=== PATIENT | female | born 1970 | race American Indian/Alaskan Native ===

== ENCOUNTER 2017-12-13 04:38 | Emergency (ER) | payer SELFPAY ==
[2017-12-13] MEDS ORDERED: CATAPRES ONE (04:54)
[2017-12-13] MEDS ORDERED: CATAPRES PO ONE (04:57)
--- NOTE | 2017-12-13 05:47 | Emergency Department Report ---
ED ENT HPI - General Chief complaint: Dental/Oral Stated complaint: JAW PAIN Time Seen by Provider: 12/13/17 05:43 Source: patient Mode of arrival: Ambulatory Limitations: No Limitations - History of Present Illness Initial comments: 47-year-old -Trist[place] female with past medical history of hypertension comes in today complaining of left-sided jaw pain has been going on for about 2 weeks. Patient reports that she had a toothache one week ago and now having jaw pain and swelling. Patient also comes in for being out of her blood pressure medicine for a week. Patient reports that she has appointment with her primary care provider on Thursday but he would not refill her medication until she makes an office visit. Patient reports she has not been to the dentist in a long time. Patient denies any chest pain no fever no chills no nausea no vomiting no headache or shortness of breathing. Her last office visit to her primary care was about 2 months ago. She reports that she has a follow-up appointment this week on Thursday. Patient has an allergy to MARINE inhibitor. Her current blood pressure medicine is metoprolol 50 twice a day amlodipine 10 mg daily. MD complaint: tooth pain -: week(s) (2) Location: tooth # (15) Consistency: constant Worsens with: eating Associated Symptoms: gum swelling, toothache - Related Data Previous Rx's Medication Instructions Recorded Last Taken Type Acetaminophen/Codeine [Tylenol 1 tab PO Q4HR PRN #20 tablet 12/13/17 Unknown Rx /Codeine # 3 tab] Clindamycin [Clindamycin CAP] 300 mg PO Q8H 10 Days #30 cap 12/13/17 Unknown Rx Metoprolol [Lopressor TAB] 50 mg PO BID 30 Days #30 tablet 12/13/17 Unknown Rx amLODIPine [Norvasc] 10 mg PO DAILY #30 tablet 12/13/17 Unknown Rx cloNIDine [Catapres] 0.1 mg PO DAILY PRN #30 tablet 12/13/17 Unknown Rx Allergies Allergy/AdvReac Type Severity Reaction Status Date / Time lisinopril Allergy Swelling Verified 04/06/16 18:02 MARINE Inhibitors AdvReac Unknown Verified 04/18/15 23:09 ED Dental HPI - General Chief complaint: Dental/Oral Stated complaint: JAW PAIN Time Seen by Provider: 12/13/17 05:43 Source: patient Mode of arrival: Ambulatory Limitations: No Limitations - Related Data Previous Rx's Medication Instructions Recorded Last Taken Type Acetaminophen/Codeine [Tylenol 1 tab PO Q4HR PRN #20 tablet 12/13/17 Unknown Rx /Codeine # 3 tab] Clindamycin [Clindamycin CAP] 300 mg PO Q8H 10 Days #30 cap 12/13/17 Unknown Rx Metoprolol [Lopressor TAB] 50 mg PO BID 30 Days #30 tablet 12/13/17 Unknown Rx amLODIPine [Norvasc] 10 mg PO DAILY #30 tablet 12/13/17 Unknown Rx cloNIDine [Catapres] 0.1 mg PO DAILY PRN #30 tablet 12/13/17 Unknown Rx Allergies Allergy/AdvReac Type Severity Reaction Status Date / Time lisinopril Allergy Swelling Verified 04/06/16 18:02 MARINE Inhibitors AdvReac Unknown Verified 04/18/15 23:09 ED Review of Systems ROS: Stated complaint: JAW PAIN Other details as noted in HPI Constitutional: denies: chills, fever Eyes: denies: eye pain, eye discharge, vision change ENT: dental pain. denies: ear pain, throat pain Respiratory: denies: cough, shortness of breath, wheezing Cardiovascular: denies: chest pain, palpitations Endocrine: no symptoms reported Gastrointestinal: denies: abdominal pain, nausea, diarrhea Genitourinary: denies: urgency, dysuria, discharge Musculoskeletal: denies: back pain, joint swelling, arthralgia Skin: denies: rash, lesions Neurological: denies: headache, weakness, paresthesias Psychiatric: denies: anxiety, depression Hematological/Lymphatic: denies: easy bleeding, easy bruising ED Past Medical Hx - Past Medical History Previous Medical History?: Yes Hx Hypertension: Yes Hx Congestive Heart Failure: No Hx Diabetes: No Hx Asthma: No Hx COPD: No - Surgical History Past Surgical History?: Yes Additional Surgical History: Ectopic - Social History Smoking Status: Never Smoker Substance Use Type: None - Medications Home Medications: Home Medications Medication Instructions Recorded Confirmed Last Taken Type Acetaminophen/Codeine [Tylenol 1 tab PO Q4HR PRN #20 tablet 12/13/17 Unknown Rx /Codeine # 3 tab] Clindamycin [Clindamycin CAP] 300 mg PO Q8H 10 Days #30 cap 12/13/17 Unknown Rx Metoprolol [Lopressor TAB] 50 mg PO BID 30 Days #30 tablet 12/13/17 Unknown Rx amLODIPine [Norvasc] 10 mg PO DAILY #30 tablet 12/13/17 Unknown Rx cloNIDine [Catapres] 0.1 mg PO DAILY PRN #30 tablet 12/13/17 Unknown Rx ED Physical Exam - General Limitations: No Limitations General appearance: alert, in no apparent distress - Head Head exam: Present: atraumatic, normocephalic - Eye Eye exam: Present: normal appearance - Expanded ENT Exam Expanded Teeth exam: Present: dental tenderness # (15), gingival enlargement Throat exam: Positive: normal inspection - Neck Neck exam: Present: normal inspection - Respiratory Respiratory exam: Present: normal lung sounds bilaterally. Absent: respiratory distress - Cardiovascular Cardiovascular Exam: Present: regular rate, normal rhythm. Absent: systolic murmur, diastolic murmur, rubs, gallop - GI/Abdominal GI/Abdominal exam: Present: soft, normal bowel sounds - Extremities Exam Extremities exam: Present: normal inspection, full ROM. Absent: pedal edema - Neurological Exam Neurological exam: Present: alert, oriented X3 ED Course Vital Signs 12/13/17 04:48 Temperature 99.1 F Pulse Rate 89 Respiratory 17 Rate Blood Pressure 195/113 O2 Sat by Pulse 99 Oximetry ED Medical Decision Making - Medical Decision Making Patient has been evaluated by this provider fast track. Patient is taken clonidine 0.1 mg in triage. I discussed the patient that it appears that she has a tooth abscess with swollen gingiva. Discussed the patient we'll place her on antibiotics. Also discussed the patient and she needs a follow-up with a dentist and I will refer her to the ones we use. I also discussed the patient that I will refill her blood pressure medicine. Patient verbalized understanding Critical care attestation.: If time is entered above; I have spent that time in minutes in the direct care of this critically ill patient, excluding procedure time. ED Disposition Clinical Impression: HTN, goal below 130/80, Tooth abscess Disposition: TO HOME OR SELFCARE Is pt being admited?: No Does the pt Need Aspirin: No Condition: Stable Instructions: Hypertension (ED), Dental Abscess (ED) Additional Instructions: Please take antibiotics as prescribed. Please do not operate heavy machinery while taking the Tylenol No. 3. Please take blood pressure medicine as prescribed. Please keep your appointment with your PCP. It's very important for you to follow up with the dentist I have listed several below. Prescriptions: Acetaminophen/Codeine [Tylenol /Codeine # 3 tab] 1 tab PO Q4HR PRN #20 tablet PRN Reason: Pain amLODIPine [Norvasc] 10 mg PO DAILY #30 tablet Clindamycin [Clindamycin CAP] 300 mg PO Q8H 10 Days #30 cap cloNIDine [Catapres] 0.1 mg PO DAILY PRN #30 tablet PRN Reason: Hypertension Metoprolol [Lopressor TAB] 50 mg PO BID 30 Days #30 tablet Referrals: CAROL SHARIF III, [employer] MANAGER-[facility] [Primary Care Provider] - 3-5 Days [facility] [Outside] - 3-5 Days [facility] [Outside] - 3-5 Days Forms: Work/School Release Form(ED)
[2017-12-13 06:15] VITALS: BP 159/105
== END 2017-12-13 06:15 | disposition home or self-care (01) ==
LOC: ED 04:38
DX: K04.7 Periapical abscess without sinus (principal); I10 Essential (primary) hypertension; Z88.8 Allergy status to other drugs, medicaments and biological substances
CPT/HCPCS: 99282

== ENCOUNTER 2019-04-03 18:59 | Emergency (ER) | payer OTHER ==
--- NOTE | 2019-04-03 19:21 | Event Note ---
ED Screening Note Date of service: 04/03/19 Time: 19:19 ED Screening Note: 48 y/o female comes in for left foot numbness. No JOHNSON. Nathanael Nuñez. This initial assessment/diagnostic orders/clinical plan/treatment(s) is/are subject to change based on patients health status, clinical progression and re- assessment by fellow clinical providers in the ED. Further treatment and workup at subsequent clinical providers discretion. Patient/guardian urged not to elope from the ED as their condition may be serious if not clinically assessed and managed. Initial orders include:
--- NOTE | 2019-04-03 21:36 | Emergency Department Report ---
ED Extremity Problem HPI - General Chief complaint: Extremity Problem,Nontraumatic Stated complaint: FOOT NUMBNESS Time Seen by Provider: 04/03/19 19:46 Source: patient Mode of arrival: Ambulatory Limitations: No Limitations - History of Present Illness Initial comments: Patient is a 48-year-old female who presents to emergency room with complaints of decreased sensation to the right foot that began 2 days ago. She states it began after wearing shoes that were too tight. She states that the shoes left an indention on her foot. She denies any pain or weakness. Pt has been ambulatory without difficulty. PMHx of HTN states she takes losartan and hctz which she states she took both today. she states her PCP is working to get her BP under control and adjusting her dosage. - Related Data Previous Rx's Medication Instructions Recorded Last Taken Type Acetaminophen/Codeine [Tylenol 1 tab PO Q4HR PRN #20 tablet 12/13/17 Unknown Rx /Codeine # 3 tab] Clindamycin [Clindamycin CAP] 300 mg PO Q8H 10 Days #30 cap 12/13/17 Unknown Rx Metoprolol [Lopressor TAB] 50 mg PO BID 30 Days #30 tablet 12/13/17 Unknown Rx amLODIPine [Norvasc] 10 mg PO DAILY #30 tablet 12/13/17 Unknown Rx cloNIDine [Catapres] 0.1 mg PO DAILY PRN #30 tablet 12/13/17 Unknown Rx Allergies Allergy/AdvReac Type Severity Reaction Status Date / Time lisinopril Allergy Swelling Verified 04/03/19 19:20 MARINE Inhibitors AdvReac Unknown Verified 04/03/19 19:19 ED Review of Systems ROS: Stated complaint: FOOT NUMBNESS Other details as noted in HPI Comment: All other systems reviewed and negative ED Past Medical Hx - Past Medical History Previous Medical History?: Yes Hx Hypertension: Yes Hx Congestive Heart Failure: No Hx Diabetes: No Hx Asthma: No Hx COPD: No - Surgical History Past Surgical History?: Yes Additional Surgical History: Ectopic - Social History Smoking Status: Never Smoker Substance Use Type: None - Medications Home Medications: Home Medications Medication Instructions Recorded Confirmed Last Taken Type Acetaminophen/Codeine [Tylenol 1 tab PO Q4HR PRN #20 tablet 12/13/17 Unknown Rx /Codeine # 3 tab] Clindamycin [Clindamycin CAP] 300 mg PO Q8H 10 Days #30 cap 12/13/17 Unknown Rx Metoprolol [Lopressor TAB] 50 mg PO BID 30 Days #30 tablet 12/13/17 Unknown Rx amLODIPine [Norvasc] 10 mg PO DAILY #30 tablet 12/13/17 Unknown Rx cloNIDine [Catapres] 0.1 mg PO DAILY PRN #30 tablet 12/13/17 Unknown Rx ED Physical Exam - General Limitations: No Limitations General appearance: alert, in no apparent distress - Head Head exam: Present: atraumatic, normocephalic - Eye Eye exam: Present: normal appearance, PERRL - ENT ENT exam: Present: mucous membranes moist - Extremities Exam Extremities exam: Present: other (no TTP of the right foot, no edema of the right foot, sensation intact, 2+ pt and dp pulse, no deformity, no ecchymosis, no skin changes) - Neurological Exam Neurological exam: Present: alert, oriented X3, CN II-XII intact, normal gait. Absent: motor sensory deficit - Psychiatric Psychiatric exam: Present: normal affect, normal mood - Skin Skin exam: Present: warm, dry, intact ED Course Vital Signs 04/03/19 04/03/19 19:18 21:53 Temperature 98.2 F 98 F Pulse Rate 89 79 Respiratory 18 16 Rate Blood Pressure 191/97 Blood Pressure 180/110 [Right] O2 Sat by Pulse 100 100 Oximetry ED Medical Decision Making - Medical Decision Making Patient is a 48-year-old female who presents to emergency room with complaints of decreased sensation to the right foot that began 2 days ago. She states it began after wearing shoes that were too tight. She states that the shoes left an indention on her foot. She denies any pain or weakness. Pt has been ambulatory without difficulty. PMHx of HTN states she takes losartan and hctz which she states she took both today. she states her PCP is working to get her BP under control and adjusting her dosage. on exam: no TTP of the right foot, no edema of the right foot, sensation intact, 2+ pt and dp pulse, no deformity, no ecchymosis, no skin changes. discussed with pt to wear shoes that are not as tight on the foot. discussed with pt the elevation in her blood pressure and to discuss with her PCP for further management and adjustments to her meds and to keep a BP log. advised to please follow up with your primary care doctor in the next 2-3 days. please discuss your blood pressure with your primary care doctor. return to the emergency room for any new or worsening symptoms. Critical care attestation.: If time is entered above; I have spent that time in minutes in the direct care of this critically ill patient, excluding procedure time. ED Disposition Clinical Impression: Paresthesia of right foot, Elevated blood pressure reading Disposition: TO HOME OR SELFCARE Is pt being admited?: No Does the pt Need Aspirin: No Condition: Stable Instructions: Paresthesia (ED) Additional Instructions: please follow up with your primary care doctor in the next 2-3 days. please discuss your blood pressure with your primary care doctor. return to the emergency room for any new or worsening symptoms. Referrals: [facility] [Outside] - 2-3 Days [facility] [Provider Group] - 2-3 Days [facility] [Outside] - 2-3 Days Time of Disposition: 21:36 Print Language: FRISIAN
[2019-04-03 21:54] VITALS: BP 180/110
== END 2019-04-03 21:53 | disposition home or self-care (01) ==
LOC: ED 18:59
DX: R20.2 Paresthesia of skin (principal); I10 Essential (primary) hypertension; Z88.8 Allergy status to other drugs, medicaments and biological substances

== ENCOUNTER 2019-07-22 15:19 | Emergency (ER) | payer SELFPAY ==
--- NOTE | 2019-07-22 15:34 | Event Note ---
ED Screening Note Date of service: 07/22/19 Time: 15:30 ED Screening Note: Pt complains of facial pressure and facial numbness x yesterday. Denies headache or facial pain. +congestion. Denies any current numbness (states intermittent), vision/speech changes, difficulty walking, or dizziness. Hx of HTN-states uncontrolled despite BP meds This initial assessment/diagnostic orders/clinical plan/treatment(s) is/are subject to change based on patients health status, clinical progression and re- assessment by fellow clinical providers in the ED. Further treatment and workup at subsequent clinical providers discretion. Patient/guardian urged not to elope from the ED as their condition may be serious if not clinically assessed and managed. Initial orders include: CBC BMP
--- NOTE | 2019-07-22 17:03 | Cat Scan Report ---
CT HEAD WITHOUT CONTRAST INDICATION : left sided facial numbness. TECHNIQUE: Axial, coronal and sagittal CT imaging was performed from the skull apex through the skul l base without contrast. All CT scans at this location are performed using CT dose reduction for ALA RA by means of automated exposure control. COMPARISON: CT head without contrast from 09/21/2018. FINDINGS: PARENCHYMA: No mass, midline shift, hemorrhage, extraaxial collection or acute territorial infarctio n. VENTRICLES: Symmetric and normal in size. SOFT TISSUES: Soft tissues including the orbits appear normal. BONES: No acute osseous abnormality. SINUSES: No significant abnormality. ADDITIONAL FINDINGS: None. IMPRESSION: No acute intracranial abnormality. Signer Name: Sachin Sapp MD Signed: 07/22/2019 4:59 PM Workstation Name: [id number]
[2019-07-22 18:10] LABS: Basophils # (Auto) 0.2 K/mm3 (0.0-0.1); Basophils % (Auto) 1.6 % (0.0-1.8); Eosinophils # (Auto) 0.6 K/mm3 (0.0-0.4); Eosinophils % (Auto) 6.1 % (0.0-4.3); Hematocrit 41.5 % (30.3-42.9); Hemoglobin 13.3 gm/dl (10.1-14.3); Lymphocytes # (Auto) 2.3 K/mm3 (1.2-5.4); Lymphocytes % (Auto) 22.3 % (13.4-35.0); Mean Corpuscular HGB Conc 32 % (30-34); Mean Corpuscular Volume 82 fl (79-97); Monocytes # (Auto) 0.6 K/mm3 (0.0-0.8); Platelet Count 243 K/mm3 (140-440); Red Blood Count 5.08 M/mm3 (3.65-5.03); Red Cell Distribution Width 17.1 % (13.2-15.2)
[2019-07-22 18:32] LABS: BUN/Creatinine Ratio 13; Blood Urea Nitrogen 9 mg/dL (7-17); Hemolysis Index 4
--- NOTE | 2019-07-22 18:42 | Emergency Department Report ---
ED General Adult HPI - General Chief complaint: Neuro Symptoms/Deficit Stated complaint: HTN/NUMBNESS TO FACE Time Seen by Provider: 07/22/19 18:35 Source: patient Mode of arrival: Ambulatory Limitations: No Limitations - History of Present Illness Initial comments: 49-year-old obese -E[place]ian female with a known past medical history of hypertension, hypercholesterolemia and a reported allergy to GERARDO inhibitor residual department complaining of a 2 day history of left-sided numbness to the face associated with with elevated blood pressure. Stated on yesterday about 11 AM she began to notice some numbness and tingling to the left side of her face which has been which had been coming and going off and on throughout the entire day it was associated with high blood pressure episodes. States tends had a growth that losartan and metoprolol and blood pressure was ranging from systolic of the 200s and a diastolic of 120. She reports no chest pain, no palpitations no shortness of breath no blurred vision no headaches. Currently she is as ymptomatic no acute distress and feels normal. Stated she wanted to get checked out because her blood pressure had been going up and down. Location: head Radiation: non-radiation Consistency: now resolved Improves with: none Worsens with: none Associated Symptoms: denies: cough, diaphoresis, malaise, nausea/vomiting, shortness of breath, syncope, weakness Treatments Prior to Arrival: none - Related Data Previous Rx's Medication Instructions Recorded Last Taken Type Acetaminophen/Codeine [Tylenol 1 tab PO Q4HR PRN #20 tablet 12/13/17 Unknown Rx /Codeine # 3 tab] Clindamycin [Clindamycin CAP] 300 mg PO Q8H 10 Days #30 cap 12/13/17 Unknown Rx Metoprolol [Lopressor TAB] 50 mg PO BID 30 Days #30 tablet 12/13/17 Unknown Rx amLODIPine [Norvasc] 10 mg PO DAILY #30 tablet 12/13/17 Unknown Rx cloNIDine [Catapres] 0.1 mg PO DAILY PRN #30 tablet 12/13/17 Unknown Rx Allergies Allergy/AdvReac Type Severity Reaction Status Date / Time lisinopril Allergy Swelling Verified 07/22/19 15:32 GERARDO Inhibitors AdvReac Unknown Verified 07/22/19 15:32 ED Review of Systems ROS: Stated complaint: HTN/NUMBNESS TO FACE Other details as noted in HPI Comment: All other systems reviewed and negative ED Past Medical Hx - Past Medical History Previous Medical History?: Yes Hx Hypertension: Yes Hx CVA: No Hx Heart Attack/AMI: No Hx Congestive Heart Failure: No Hx Diabetes: No Hx Deep Vein Thrombosis: No Hx Pulmonary Embolism: No Hx GERD: No Hx Liver Disease: No Hx Renal Disease: No Hx of Cancer: No Hx Sickle Cell Disease: No Hx Arthritis: No Hx Headaches / Migraines: No Hx Seizures: No Hx Kidney Stones: No Hx Psychiatric Treatment: No Hx Asthma: No Hx COPD: No Hx Tuberculosis: No Hx Dementia: No Hx HIV: No - Surgical History Past Surgical History?: Yes Hx Coronary Stent: No Hx Open Heart Surgery: No Hx Pacemaker: No Hx Internal Defibrillator: No Hx Cholecystectomy: No Hx Appendectomy: No Hx Breast Surgery: No Additional Surgical History: Ectopic - Social History Smoking Status: Never Smoker Substance Use Type: None - Medications Home Medications: Home Medications Medication Instructions Recorded Confirmed Last Taken Type Acetaminophen/Codeine [Tylenol 1 tab PO Q4HR PRN #20 tablet 12/13/17 Unknown Rx /Codeine # 3 tab] Clindamycin [Clindamycin CAP] 300 mg PO Q8H 10 Days #30 cap 12/13/17 Unknown Rx Metoprolol [Lopressor TAB] 50 mg PO BID 30 Days #30 tablet 12/13/17 Unknown Rx amLODIPine [Norvasc] 10 mg PO DAILY #30 tablet 12/13/17 Unknown Rx cloNIDine [Catapres] 0.1 mg PO DAILY PRN #30 tablet 12/13/17 Unknown Rx ED Physical Exam - General Limitations: No Limitations General appearance: alert, in no apparent distress - Head Head exam: Present: atraumatic, normocephalic - Eye Eye exam: Present: normal appearance - ENT ENT exam: Present: normal exam, mucous membranes moist - Neck Neck exam: Present: normal inspection, full ROM - Respiratory Respiratory exam: Present: normal lung sounds bilaterally. Absent: respiratory distress, wheezes, rales, chest wall tenderness, accessory muscle use - Cardiovascular Cardiovascular Exam: Present: regular rate, normal rhythm. Absent: systolic murmur, diastolic murmur, rubs, gallop - GI/Abdominal GI/Abdominal exam: Present: soft, normal bowel sounds - Extremities Exam Extremities exam: Present: normal inspection - Back Exam Back exam: Present: normal inspection - Neurological Exam Neurological exam: Present: alert, oriented X3, CN II-XII intact, normal gait, other (gait coordinated and smooth. Normal finger to nose. Romberg is negative. Normal speech no ataxia). Absent: motor sensory deficit - Psychiatric Psychiatric exam: Present: normal affect, normal mood. Absent: anxious, flat affect, manic - Skin Skin exam: Present: warm, dry, intact, normal color. Absent: rash ED Course Vital Signs 07/22/19 15:30 Temperature 97.9 F Pulse Rate 76 Respiratory 16 Rate Blood Pressure 214/123 O2 Sat by Pulse 100 Oximetry ED Medical Decision Making - Lab Data Result diagrams: 07/22/19 17:33 07/22/19 17:33 - Radiology Data Radiology results: report reviewed Referring Physician: ARLENE MORRIS Patient Name: OSWALD THOMAS Date of : 1970 Sex: Female Report Date: 2019-07-22 Report Status: [place] [address] Cat Scan Report Signed Patient: OSWALD THOMAS MR#: [id number] : 1970 Acct:[id number] Age/Sex: 49 / F ADM Date: 07/22/19 Loc: ED Attending Dr: Ordering Physician: ALRENE MORRIS Date of Service: 07/22/19 Procedure(s): CT head/brain wo con Accession Number(s): [id number] cc: ARLENE MORRIS CT HEAD WITHOUT CONTRAST INDICATION : left sided facial numbness. TECHNIQUE: Axial, coronal and sagittal CT imaging was performed from the skull apex through the skull base without contrast. All CT scans at this location are performed using CT dose reduction for ALARA by means of automated exposure control. COMPARISON: CT head without contrast from 09/21/2018. FINDINGS: PARENCHYMA: No mass, midline shift, hemorrhage, extraaxial collection or acute territorial infarction. VENTRICLES: Symmetric and normal in size. SOFT TISSUES: Soft tissues including the orbits appear normal. BONES: No acute osseous abnormality. SINUSES: No significant abnormality. ADDITIONAL FINDINGS: None. IMPRESSION: No acute intracranial abnormality. Signer Name: Sachin Sapp MD Signed: 07/22/2019 4:59 PM Workstation Name: [id number] Transcribed By: MIMI Rendon ictated By: Sachin Sapp MD Electronically Authenticated By: Sachin Sapp MD Signed Date/Time: 07/22/19 [id number] - Medical Decision Making 49-year-old Afro-[place]ian female with a known history of hypertension complaining of numbness and tingling to the face on yesterday symptoms are resolved today. CT scan is normal. Sees neurologically intact. No chest pain noted no shortness of breath no current symptoms and has been a symptomatic for the last few hours. plan at this point is to manage her hypertension and to follow with her primary care provider for medication adjustments. assessment about to return to the emergency department should her symptoms continue to linger and to phone her doctor in the interim as they may want to adjust some of her current medications over the phone Treated with one dose of clonidine and blood pressure has improved to 149/92. She is asymptomatic no distress. Discussed with the patient the need to follow with primary care provider Primary care provider and may want to evaluate possible Catapres patch as she appears to be responsive to the clonidine treatment. She was previously on this medication and said that she will it was discontinued for reasons that were unknown. States that she does have over allergies Gerardo inhibitors and that she believes the amlodipine was causing her to swell but she reports no side effects or complications with the utilization of clonidine. She reports no headache, no chest pain, no blurry vision no nausea no vomiting no palpitations. Critical care attestation.: If time is entered above; I have spent that time in minutes in the direct care of this critically ill patient, excluding procedure time. ED Disposition Clinical Impression: HTN (hypertension), Normal CT scan of head Disposition: DC-01 TO HOME OR SELFCARE Is pt being admited?: No Does the pt Need Aspirin: No Condition: Stable Instructions: Hypertension (ED) Additional Instructions: Please be sure to follow your primary care provider as they may want to adjust some of your current medications before seeing you in the office next week. You need to be evaluated for medication changes as your current education did not seem to be controlling her hypertension. Referrals: [facility] [Provider Group] - 3-5 Days
[2019-07-22] MEDS ORDERED: CATAPRES PO STA (18:44)
[2019-07-22 20:23] VITALS: BP 138/96
== END 2019-07-22 20:23 | disposition home or self-care (01) ==
LOC: ED 15:19
DX: I10 Essential (primary) hypertension (principal)
CPT/HCPCS: 36415; 70450; 80048; 85025